=== PATIENT | female | born 1970 | race Caucasian/White ===

== ENCOUNTER 2018-09-29 07:58 | Day surgery (SDC) | payer BC ==
[2018-09-28 13:16] VITALS: BMI 28.1
[2018-09-29 09:55] VITALS: TEMP 98.2
[2018-09-29 10:37] VITALS: BP 119/75; PULSE 58
--- NOTE | 2018-10-02 18:11 | PATH ---
Surgical Pathology Report Patient Name: REENA MENON [facility]. Rec. #: [id number] /Age/Gender: 1970 (Age: 48) / F Account: [id number] Location: U-ENDOSCOPY Taken: 09/29/2018 Received: 09/29/2018 Reported: 10/02/2018 Physicians: Eligio Vigil M.D. Specimen(s) Received A: GE JUNCTION B: DUODENAL BULB C: DUODENUM, SECOND PORTION AND DUODENAL BULB D: FUNDUS POLYP E: ANTRUM Clinical History Iron deficiency anemia Postoperative diagnosis: Hiatal hernia, GERD, atrophic gastritis, gastric fundus polyp Final Diagnosis A. GE JUNCTION, BIOPSY: SQUAMOCOLUMNAR MUCOSA WITH MODERATE CHRONIC INFLAMMATION AND CHANGES OF MODERATE REFLUX ESOPHAGITIS. NO INTESTINAL METAPLASIA OR DYSPLASIA IDENTIFIED. B. DUODENAL BULB, BIOPSY: DUODENAL MUCOSA WITH GASTRIC HETEROTOPIA AND MODERATE CHRONIC INFLAMMATION. C. DUODENUM, SECOND PORTION AND DUODENAL BULB, BIOPSY: DUODENAL MUCOSA WITH MODERATE CHRONIC DUODENITIS AND MILD EMERITA'S GLAND HYPERPLASIA. D. STOMACH, FUNDUS POLYP, BIOPSY: FUNDIC GLAND POLYP. IMMUNOHISTOCHEMICAL STAIN FOR H. PYLORI IS NEGATIVE. E. STOMACH, ANTRUM, BIOPSY: GASTRIC ANTRAL MUCOSA WITH MILD TO MODERATE CHRONIC GASTRITIS. IMMUNOHISTOCHEMICAL STAIN FOR H. PYLORI IS NEGATIVE. Electronically Signed Elsy Hatch M.D. Gross Description A. Received in formalin, labeled "biopsy GE junction" are 3 hines, irregular portions of soft tissue ranging from 0.4-0.5 cm. in greatest dimension. The specimens are submitted in toto in one cassette. B. Received in formalin, labeled "biopsy duodenal bulb" are 2 hines, irregular portions of soft tissue measuring 0.1 and 0.3 cm. in greatest dimension. The specimens are submitted in toto in one cassette. C. Received in formalin, labeled "biopsy second portion of duodenum and duodenal bulb" are 3 hines, irregular portions of soft tissue ranging from 0.4-0.7 cm. in greatest dimension. The specimens are submitted in toto in one cassette. D. Received in formalin, labeled "biopsy fundus polyp" is a hines, irregular portion of soft tissue measuring 0.4 cm. in greatest dimension. The specimen is submitted in toto in one cassette. E. Received in formalin, labeled "biopsy antrum" are 3 hines, irregular portions of soft tissue ranging from 0.5-0.6 cm. in greatest dimension. The specimens are submitted in toto in one cassette. 09/29/2018 [facility]09/29/2018
== END 2018-09-29 10:44 | disposition home or self-care (01) ==
LOC: JASU-ENDO 07:58
PROVIDERS: ATTEND Internal Medicine Gastroenterology
PROC: 0DB68ZX Excision of Stomach, Via Natural or Artificial Opening Endoscopic, Diagnostic (ICD-10-PCS; 2018-09-29)
PROC: 0DB38ZX Excision of Lower Esophagus, Via Natural or Artificial Opening Endoscopic, Diagnostic (ICD-10-PCS; 2018-09-29)
PROC: 0DB98ZX Excision of Duodenum, Via Natural or Artificial Opening Endoscopic, Diagnostic (ICD-10-PCS; principal; 2018-09-29 08:45)
DX: K21.9 Gastro-esophageal reflux disease without esophagitis (principal); K44.9 Diaphragmatic hernia without obstruction or gangrene; K31.7 Polyp of stomach and duodenum; K29.80 Duodenitis without bleeding; D64.9 Anemia, unspecified
CPT/HCPCS: 84703; 88305-TC; 88342-TC

== ENCOUNTER 2021-07-02 15:27 | Emergency (ER) | payer BC ==
[2021-07-02 15:38] VITALS: BP 130/88; PULSE 82; TEMP 98.1; BMI 29.0
[2021-07-02] MEDS ORDERED: morphine CARPU-JECT 4 MG/1 ML DISP.SYRIN IVPUSH ONE (16:26)
[2021-07-02] MEDS ORDERED: SODIUM CHLORIDE 1,000 ML IV STA (16:26)
[2021-07-02] MEDS ORDERED: ACETAMINOPHEN 1000 MG/100 ML BAG IVPB ONE (16:26)
[2021-07-02] MEDS ORDERED: ONDANSETRON 4 MG/2 ML VIAL IVPUSH ONE (16:26)
[2021-07-02] MEDS ORDERED: ACETAMINOPHEN INJECTION 100 ML IVPB ONE (16:32)
[2021-07-02] MEDS ORDERED: ONDANSETRON 4 MG/2 ML VIAL ONE (16:32)
[2021-07-02] MEDS ORDERED: morphine SULFATE 4 MG/ML VIAL ONE (16:32)
[2021-07-02 17:22] LABS: BASO % 0.5 % (0-2.0); EOS % 1.5 % (0-4.5); HEMATOCRIT 41.1 % (32.4-45.2); HEMOGLOBIN 13.9 GM/dL (10.7-15.3); LYMPH % 25.2 % (8-40); MCH 29.2 pg (25.7-33.7); MEAN CELL VOLUME 85.9 fl (80-96); MEAN PLT VOLUME 7.3 fl (7.5-11.1); MONO % 9.6 % (3.8-10.2); NEUT % 63.2 % (42.8-82.8); PLATELET COUNT 393 10^3/uL (134-434); RBC 4.78 M/mm3 (3.60-5.2); RDW 14.4 % (11.6-15.6); WHITE BLOOD COUNT 7.6 K/mm3 (4.0-10.0)
[2021-07-02 17:30] LABS: INR 1.03 (0.83-1.09); PROTHROMBIN TIME (PATIENT) 11.8 SEC (9.7-13.0)
[2021-07-02 17:33] LABS: ACTIVATED PTT 32.1 SECONDS (25.2-36.5)
[2021-07-02 17:45] LABS: BLOOD UREA NITROGEN 15.6 mg/dL (7-18); CALCIUM 9.7 mg/dL (8.5-10.1)
[2021-07-02 17:48] LABS: CREATININE 0.8 mg/dL (0.55-1.3)
[2021-07-02 17:50] LABS: BILIRUBIN,TOTAL 0.3 mg/dL (0.2-1); TOT PROT 7.7 g/dl (6.4-8.2)
[2021-07-02 19:19] LABS: HCG,QUALITATIVE URINE Negative
[2021-07-02 19:29] LABS: EPI CELLS 36 /uL (0-25.1); HYALINE CASTS 1 /uL (0-3.1); PH,URINE 5.5 (5.0-8.0); URINE APPEARANCE CLEAR; URINE BACTERIA 818 /uL (0-1359); URINE BILIRUBIN NEGATIVE (NEGATIVE); URINE COLOR YELLOW; URINE GLUCOSE (UA) NEGATIVE (NEGATIVE); URINE KETONE NEGATIVE (NEGATIVE); URINE LEUK ESTERASE TRACE (NEGATIVE); URINE NITRITE NEGATIVE (NEGATIVE); URINE PROTEIN NEGATIVE (NEGATIVE); URINE RBC 2 /uL (0-23.9); URINE UROBILINOGEN 0.2 mg/dL (0.2-1.0); URINE WBC 36 /uL (0-25.8)
== END 2021-07-02 20:45 | disposition home or self-care (01) ==
LOC: JER 15:27
PROC: 3E0333Z Introduction of Anti-inflammatory into Peripheral Vein, Percutaneous Approach (ICD-10-PCS; principal; 2021-07-02)
PROC: 3E033NZ Introduction of Analgesics, Hypnotics, Sedatives into Peripheral Vein, Percutaneous Approach (ICD-10-PCS; 2021-07-02)
PROC: 3E033GC Introduction of Other Therapeutic Substance into Peripheral Vein, Percutaneous Approach (ICD-10-PCS; 2021-07-02)
PROC: 3E0337Z Introduction of Electrolytic and Water Balance Substance into Peripheral Vein, Percutaneous Approach (ICD-10-PCS; 2021-07-02)
DX: K21.9 Gastro-esophageal reflux disease without esophagitis (principal)
CPT/HCPCS: 36415; 76705-TC; 80053; 81003; 83690; 84703; 85025; 85610; 85730; 86850; 86900; 86901; 87086; 93005; 93010; 99285-25